=== PATIENT | male | born 1940 | race Caucasian/White ===

== ENCOUNTER 2017-01-23 11:47 | Emergency (ER) | payer MEDICARE, OTHER | END 2017-01-23 17:40 | disposition home or self-care (01) | LOC: FER 11:47 | DX: S30.0XXA Contusion of lower back and pelvis, initial encounter (principal); J01.90 Acute sinusitis, unspecified; J20.9 Acute bronchitis, unspecified; I95.1 Orthostatic hypotension; I10 Essential (primary) hypertension; J45.909 Unspecified asthma, uncomplicated; E78.00 Pure hypercholesterolemia, unspecified; Z79.899 Other long term (current) drug therapy; W18.30XA Fall on same level, unspecified, initial encounter; Y92.009 Unspecified place in unspecified non-institutional (private) residence as the place of occurrence of the external cause | CPT/HCPCS: 70450; 72125; 72170 ==